=== PATIENT | female | born 1995 | race Caucasian/White ===

== ENCOUNTER 2016-12-24 06:05 | Emergency (ER) | payer BC ==
[2016-12-24 07:33] VITALS: BP 125/79
--- NOTE | 2016-12-24 08:00 | ER ---
DATE SEEN: 12/24/2016 Glenny Richardson was seen at 0650 hours. /[id number] DANA/ZAIRE
--- NOTE | 2016-12-24 08:57 | ER ---
DATE SEEN: 12/24/2016 HISTORY OF PRESENT ILLNESS: Just as she was leaving, I gave work slip to her sister and to the patient to excuse them from arriving at work late this morning. Her sister said that Glenny had some difficulty walking down the step, she was leaning to the left. When she walked down the hallway, she was leaning to the left. There was no seizure-like activity. It took the entire interview to come to this information. She stated that she was not stumbling, she did not fall, but she was leaning slightly to the left. ASSESSMENT: The patient needs further evaluation and probable MRI/CT of the head, but this will not be performed today. Her healthcare provider, Kaela Brandon, may have an opportunity to make those arrangements and to bring closure on the failed appointment and rearrange the appointment with the neuropsychiatric specialist. /[id number] DANA/ZAIRE
--- NOTE | 2016-12-24 09:12 | ER ---
DATE SEEN: 12/24/2016 HISTORY OF PRESENT ILLNESS: This 21-year-old awoke this morning with "a weird sense of dizziness, a weird, not spinning, slight dizziness." No history of head trauma, fever, infection, precipitating event with high-speed recreational acceleration and deceleration, "I felt like I had gone, but didn't, then I started crying, hyperventilating, and had a bad panic attack." The patient has seen Kaela Brandon, has been prescribed Cymbalta, but has not taken them because "I forget." The patient has had arrangements made for her to see a specialist regarding her forgetfulness, but did not get to the specialist's appointment because "my mother forgot, I didn't care, my mother didn't care because she has 6 kids, she can't remember appointment, I really was not interested in going because that is better, I felt it didn't have a problem, my memory is a problem. I have got a bad memory, I don't know it happened." SOCIAL HISTORY: The patient quit school on 12/23/2016. She was going to [employer] Initially in October, she had a leave of absence because she was unable to remember and participate in schooling activities. Illicit drug use, marijuana every 1-1/2 weeks, nonsmoker, otherwise does not drink alcohol. PREVIOUS HOSPITALIZATIONS: None. PAST MEDICAL HISTORY: No diabetes, heart disease, high blood pressure, other serious illnesses, head injuries. She remembers she had a shoulder dystocia with her delivery. The patient did not graduate from high school. PHYSICAL EXAMINATION: VITAL SIGNS: Blood pressure 122/62, heart rate 71, respirations 20, oxygen saturation 100%, temperature 36.8 degrees centigrade. CONSTITUTIONAL: Slightly overweight pleasant woman, in no acute distress, who did not have any problems with immediate short-term memory to several questions. FOLSTEIN MINI MENTAL STATUS: Intact scoring appropriately, 25/25 questions. HEENT: PERRLA intact. Pharynx without abnormality. Eyegrounds normal appearance. No retinal disc or optic disc pressure abnormalities. Optic cup is normal. Hearing is intact. Ears negative. NECK: No cervical adenopathy. No thyromegaly. No masses in the neck. LUNGS: Clear to auscultation without rales, rhonchi, or wheezes. HEART: S1, S2. No murmur. Regular rate and rhythm. ABDOMEN: Soft. No guarding. No abdominal discomfort. EXTREMITIES: Without abnormality. NEURO: Deep tendon reflexes in lower extremities, symmetrical and 1+, normoactive. Cranial nerves 2 through 12 intact. Oriented x3. Gait appropriate. Romberg negative. No past pointing. No pronator drift. No muscle weakness, upper and lower extremities. DERMIS: Negative. ENDOCRINE: Negative. ASSESSMENT: 1. The patient apparently has difficulty in short-term memory. 2. Drug noncompliance, has been prescribed Cymbalta and has not taken it because she "cannot remember" or as noted not to take it or does not feel she has a problem. 3. Panic attack secondary to not taking Cymbalta. 4. Mild obesity. 5. Disengagement and behavior suggest as oppositional, but did not come across oppositional today. 6. Parental noninvolvement/presumed noncommitment to further health care investigation of her memory problems. 7. Possible shoulder dystocia mediated MID LEVEL PROVIDER problem from resulting her compromised decision making, poor decisions, noncompliance, and short-term memory difficulties. 8. Depression. 9. Possible early brain changes, may require MRI evaluation. PLAN: 1. The patient dismissed with her sister. 2. Sister make arrangement to have a pill box and see they are musical or provides alarms when she does not take her medicine, so she is alerted that she needs take her Cymbalta. The patient needs to take her Cymbalta. 3. Sister make arrangements to help bring closure to the patient's evaluation by a neuropsychiatric specialist regarding her mental fall away and dysfunctional behaviors. Follow up with doctor in a week/healthcare provider. /[id number] DANA/ZAIRE
== END 2016-12-24 07:45 | disposition home or self-care (01) ==
LOC: FB.ED 06:05
DX: F41.0 Panic disorder [episodic paroxysmal anxiety] (principal); E66.9 Obesity, unspecified; F32.9 Major depressive disorder, single episode, unspecified; Z91.14 Patient's other noncompliance with medication regimen
CPT/HCPCS: 99282